=== PATIENT | female | born 2000 | race Caucasian/White ===

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

== ENCOUNTER → 2024-01-04 13:01 | Outpatient (ROUT) | payer OTHER, SELFPAY ==
[2024-01-04 13:31] LABS: HCG Quantitative /Beta subunit 49.32 mIU/mL
== END ==
PROVIDERS: Visit Provider Family Medicine
DX: N91.2 Amenorrhea, unspecified (principal)
CPT/HCPCS: 84702

== ENCOUNTER → 2024-01-06 08:38 | Outpatient (CLI) | payer OTHER, SELFPAY ==
[2024-01-06 10:21] LABS: HCG Quantitative /Beta subunit 85.81 mIU/mL
== END ==
PROVIDERS: PCP Family Medicine; Referring Provider Family Medicine; Visit Provider Family Medicine
DX: N91.2 Amenorrhea, unspecified (principal); Z3A.01 Less than 8 weeks gestation of pregnancy
CPT/HCPCS: 36415; 84702